=== PATIENT | female | born 1955 | race Caucasian/White ===

== ENCOUNTER 2018-08-22 09:52 | Day surgery (SDC) | payer OTHER ==
[~2018-08-22 09:52] MED LIST: CEFAZOLIN 2 Gram 2 GM/50 ML BAG IVPB ONE; CELECOXIB 100 MG CAPSULE PO ONE; FAMOTIDINE 20MG TABLET PO ONE; MECLIZINE 25 MG TABLET PO ONE; METOCLOPRAMIDE 10 MG TABLET PO ONE
[2018-08-22] MEDS ORDERED: MIDAZOLAM HCL 2MG/2ML VIAL IV ONE (09:53)
[2018-08-22] MEDS ORDERED: ROPIVACAINE HCL (NAROPIN) /PF 5MG/ML 20ML VIAL IV ONE (09:53)
[2018-08-22] MEDS ORDERED: TRANEXAMIC ACID 1,000 MG/10 ML ML IV ONE (09:53)
[2018-08-22] MEDS ORDERED: DEXAMETHASONE 4 MG/ML 1ML VIAL IVP ONE (09:53)
[2018-08-22] MEDS ORDERED: LIDOCAINE 2% MDV (20MG/ML) 20ML VIAL IV ONE (09:53)
[2018-08-22] MEDS ORDERED: PROPOFOL 10 MG/ML VIAL IV ONE (09:53)
[2018-08-22] MEDS ORDERED: BREO (FLUTICASONE/VILANTEROL) 200MCG/25MCG INHALER INH PRN (14:05)
[2018-08-22] MEDS ORDERED: ALBUTEROL INH PRN (14:05)
[2018-08-22] MEDS ORDERED: PANTOPRAZOLE SODIUM 40 MG TABLET PO PRN (14:06)
[2018-08-22] MEDS ORDERED: ZOLPIDEM TARTRATE 5 MG TABLET PO PRN (14:15)
[2018-08-22] MEDS ORDERED: ONDANSETRON HCL IV 4 MG/2 ML VIAL IVP PRN (14:15)
[2018-08-22] MEDS ORDERED: TRAMADOL HCL 50 MG TABLET PO PRN (14:15)
[2018-08-22] MEDS ORDERED: AL HYDROX/MAG HYDROX 30ML UD PO PRN (14:15)
[2018-08-22] MEDS ORDERED: ACETAMINOPHEN 325 MG TAB PO PRN (14:15)
[2018-08-22] MEDS ORDERED: OXYCODONE HCL/APAP 5MG/325MG TABLET PO PRN ×2 (14:15)
[2018-08-22] MEDS ORDERED: MAGNESIUM HYDROXIDE 30 ML UDC PO PRN (14:15)
[2018-08-22] MEDS ORDERED: METOCLOPRAMIDE HCL 10 MG/2 ML VIAL IVP PRN (14:15)
[2018-08-22] MEDS ORDERED: SENNOSIDES/DOCUSATE SODIUM UD CAPSULE PO PRN (14:15)
[2018-08-22] MEDS ORDERED: NALOXONE 0.4 MG/1 ML VIAL IVP PRN (14:15)
[2018-08-22] MEDS ORDERED: DIPHENHYDRAMINE HCL 25 MG CAPSULE PO PRN (14:15)
[2018-08-22] MEDS: HYDROCODONE/APAP 5/325MG TABLET PO PRN ×3 (15:05→21:50)
[2018-08-22] MEDS ORDERED: TRANEXAMIC ACID 1,000 MG in 0.9 % SODIUM CHLORIDE 100ML 100 ML IVPB ONE (16:00)
[2018-08-22] MEDS: HYDROMORPHONE HCL 2 MG/ML VIAL IV PRN ×2 (16:29→21:51)
--- NOTE | 2018-08-22 16:58 | Rehab Evaluation ---
Patient Information - Patient Information Diagnosis: R knee OA Ordered Treatment: PT Evaluate and Treat Status: Initial Evaluation Surgery: Yes (R TKA) Date of Surgery: 08/22/18 Past Medical/Surgical Hx: PAST MEDICAL/SURGICAL HISTORY Past Surgical History breast augmentation appy right knee scope ear sx c scopes EGD PMH - Respiratory Hx Respiratory Disorders Yes Hx Asthma Yes: well controlled rarely has to use inhaler. exercise and scent induced Hx Bronchitis Yes: nothing recent PMH - Cardiovascular Hx Cardiovascular Disorders No Exercise Tolerance Good Hx of Migraines Yes: occular rarely PMH - Neuro Hx Neurological Disorders Yes Hx Dizziness Yes: artificial ear ear drum and ear canal occasional dizziness Comment: [place] 1957 some residual weakness in hips PMH - GI Hx Gastrointestinal Disorders Yes Hx Gastroesophageal Reflux Yes: just occassionally, takes prilosec prn PMH - Hx Genitourinary Disorders No Hx Age of Menopause 36 PMH - Endocrine Hx Endocrine Disorders No PMH - Musculoskeletal Hx Musculoskeletal Disorders Yes Hx Arthritis Yes PMH - Psych Hx Psychiatric Problems Yes Hx Anxiety Yes Hx Depression Yes Major Depressive Episode Yes Comment: PTSD controlled. Major depressive episode 1985 PMH - Hematology/Oncology Hx Hematology/Oncology No Disorders Premorbid Status: Detail (The patient was indpendent with all mobility prior to surgery.) Social History: Detail (The patient lives alone in an apartment with 3 to 4 steps at the enterance and 2 railings. The patient's daughter will be staying with patient upon discharge. The patient's bathroom is equipped with a walk in shower with a stool, hand held shower, standard toilet with a riser seat. No grab bars are present in the bathroom. The patient has a standard walker.) Precautions: [place], Fall, Other (WBAT on the R LE) - Time With Patient Total Time Spent With Patient (Min): 30 Treatment Procedures: Detail (Initial Evaluation, Gait training) Subjective Information - Subjective Information Per Patient (The patient had complaints of level 7 pain using 0 to 10 pain scale.) Objective Data - Mental Status Patient Orientation: Oriented x3 - Visual Perception Appears within normal limits for therapeutic activities - ROM Not within normal limits (The patient's R knee AROM was limited as to be expected following surgery. All other AROM is WNL.) - Strength/Tone Not within normal limits (The patient's R LE strength was not formally tested secondary to status post surgery , the patient required minimal PA to lift R LE in and out of bed. The patient's L LE strength was functional.) - Bed Mobility Needs Assist (The patient required minimal PA with lifting R LE with supine to sit. The patient had increased complaints of R knee pain. The patient was able to scoot up in bed independently.) - Transfers Independent (The patient was independent with sit to and from stand transfer. The patient complained of nausea when standing.) - Balance Balance Sitting: Good Balance Standing: Fair - Sensation Intact - Gait Detail (The patient ambulated with front wheeled walker with CG of 1 WBAT on the R LE a distance of 7 feet x 1. Patient felt lightheaded and nausea. The patient was returned to bed.) Therapy Assessment - Therapy Assessment Detail (The patient required minimal PA with bed mobility and was independent with transfers. The patient ambulated a short distance due to not feeling well. Feel the patient will progress well with mobility.) Problem List - Problem List Physical Therapy Problem List: Detail (Decreased R knee AROM and Decreased R LE strength as to be expected following surgery.) Goals - Goals Physical Therapy Goals: 1)The patient will ambulate household distances with appropriate assistive device WBAT on the R LE independently. 2)The patient will be independent with ambulation on stairs using proper technique with supervision for safety. 3) The patient will be independent TKA HEP. 4) The patient will be independent with bed mobility Prognosis - Prognosis Good Plan - Plan Physical Therapy Plan: PT 1-2 times a day until all inpatient PT goals have been met for gait training, bed mobility and instruction in TKA HEP.
[2018-08-22] MEDS ORDERED: RINGERS SOLUTION,LACTATED 1,000 ML IV PRN (19:40)
[2018-08-22] MEDS: TRAMADOL HCL 50 MG TABLET PO PRN (19:59)
[2018-08-22] MEDS: CEFAZOLIN 2 Gram 2 GM/50 ML BAG IVPB SCH (20:00)
[2018-08-22] MEDS: ASPIRIN 325 MG TAB ENTERIC-COATED PO SCH (21:50)
[2018-08-22] MEDS ORDERED: PATIENT OWN MED: ESCITALOPRAM 20 MG PO SCH (22:00)
[2018-08-23] MEDS: HYDROCODONE/APAP 5/325MG TABLET PO PRN (02:04)
[2018-08-23] MEDS: RINGERS SOLUTION,LACTATED 1,000 ML IV SCH ×2 (05:15→06:35)
[2018-08-23] MEDS: CEFAZOLIN 2 Gram 2 GM/50 ML BAG IVPB SCH ×2 (05:17→12:23)
[2018-08-23] MEDS: TRAMADOL HCL 50 MG TABLET PO PRN ×2 (06:21→11:11)
--- NOTE | 2018-08-23 08:30 | Operative Note ---
DATE OF SURGERY: 08/22/2018 Surgeon: Alexis Maldonado DO PREOPERATIVE DIAGNOSIS: Primary osteoarthritis of the right knee. POSTOPERATIVE DIAGNOSIS: Primary osteoarthritis of the right knee. OPERATION: Right total knee arthroplasty. DESCRIPTION OF PROCEDURE: This 63-year-old female was taken to the operating room and placed in the supine position on the operating room table after spinal anesthesia had been induced. The right lower extremity was elevated. It was prepped with Hibiclens and draped in the usual sterile fashion. It was exsanguinated and the tourniquet inflated to 300 mmHg. All scrub personnel wore personal isolation suits. An anterior longitudinal midline incision was made followed by a medial parapatellar arthrotomy incision. An intracondylar drill hole was made for the intramedullary alignment laurent, and the distal femoral cutting block was affixed at 1 5-degree valgus 9 mm cut. The appropriate cuts were made. The wafers of bone were removed. Sizing jig was affixed and a size 67.5 was seen to be the appropriate size. The cutting block was then pinned in 3 degrees of external rotation. The appropriate cuts were made. We then directed our attention to the proximal tibia, and an extramedullary alignment guide was used to cut the proximal tibia referencing a 10 mm cut off the lateral tibial plateau. After the appropriate alignment was assured, a 3-degree posterior slope cut was made and the wafer of bone was removed. Remnants of the menisci and osteophytes were removed from the posterior aspect of the joint. The tibia was sized to a size 75 and the stem punch was used. The patella was then cut and restored to anatomic height with a 34 x 7.8 mm trial. Trial components were then inserted with a 12 mm bearing was seen to be the appropriate size. The knee was taken through range of motion and found to be stable. All trial components were then removed and the wound copiously irrigated with pulse lavage lactated Ringer's solution. All bony surfaces were dried and excess cement removed after the insertion of each component. Initially a size 75 tibial baseplate was cemented followed by the insertion of a 12 mm anterior stabilized E1 bearing and a 67.5 cruciate retaining femoral component and a 34 x 7.8 mm patella was used. GROSS PATHOLOGY: This patient demonstrated severe osteoarthritis of the medial compartment with full-thickness articular cartilage loss being noted there. Advanced degenerative disease of the patellofemoral joint was also identified. MICK
[2018-08-23] MEDS ORDERED: CELECOXIB 100 MG CAPSULE PO SCH (10:00)
[2018-08-23] MEDS ORDERED: BUPROPION 150 MG PO SCH (10:00)
[2018-08-23] MEDS: ASPIRIN 325 MG TAB ENTERIC-COATED PO SCH (10:11)
--- NOTE | 2018-08-23 10:28 | Rehab Evaluation ---
Patient Information - Patient Information Diagnosis: R knee OA Ordered Treatment: OT Evaluate and Treat Status: Initial Evaluation Surgery: Yes (R TKA) Date of Surgery: 08/22/18 Past Medical/Surgical Hx: PAST MEDICAL/SURGICAL HISTORY Past Surgical History breast augmentation appy right knee scope ear sx c scopes EGD PMH - Respiratory Hx Respiratory Disorders Yes Hx Asthma Yes: well controlled rarely has to use inhaler. exercise and scent induced Hx Bronchitis Yes: nothing recent PMH - Cardiovascular Hx Cardiovascular Disorders No Exercise Tolerance Good Hx of Migraines Yes: occular rarely PMH - Neuro Hx Neurological Disorders Yes Hx Dizziness Yes: artificial ear ear drum and ear canal occasional dizziness Comment: [place] 1957 some residual weakness in hips PMH - GI Hx Gastrointestinal Disorders Yes Hx Gastroesophageal Reflux Yes: just occassionally, takes prilosec prn PMH - Hx Genitourinary Disorders No Hx Age of Menopause 36 PMH - Endocrine Hx Endocrine Disorders No PMH - Musculoskeletal Hx Musculoskeletal Disorders Yes Hx Arthritis Yes PMH - Psych Hx Psychiatric Problems Yes Hx Anxiety Yes Hx Depression Yes Major Depressive Episode Yes Comment: PTSD controlled. Major depressive episode 1985 PMH - Hematology/Oncology Hx Hematology/Oncology No Disorders Premorbid Status: Detail (The patient was independent with all mobility, meal prep, laundry and home mgmt tasks prior to surgery.) Social History: Detail (The patient lives alone in an apartment with 4 steps and 2 railings at the entrance. The patient's daughter will be staying with patient for a few days upon discharge. The patient's bathroom is equipped with a walk in shower with a seat and hand held shower and a standard toilet with a riser seat and grab bars. The patient has a standard walker.) Precautions: [place], Fall, Other (WBAT on the R LE) - Time With Patient Total Time Spent With Patient (Min): 40 Treatment Procedures: Detail (OT eval low complexity) Subjective Information - Subjective Information Per Patient Objective Data - Pain Pain Present: Yes (02/24) - Mental Status Patient Orientation: Oriented x3 - Visual Perception Appears within normal limits for therapeutic activities - ROM Within normal limits (Truong UE AROM WNL) - Strength/Tone Within normal limits (Truong UE strength WNL although pt reports shoulders become sore after a lot of use.) - Coordination Appears within normal limits for therapeutic activities - Bed Mobility Needs Assist (Pt required min assist to move right leg during supine to sit. Pt educated on use of adaptive equipment to move leg at home, she verbalized understanding.) - Transfers Independent (Ind with sit to stand from EOB.) - Balance Balance Sitting: Good Balance Standing: Good - Sensation Intact - Gait Detail (Pt ambulating in room with 2 wheeled walker Indly.) - ADL's/IADL's Detail (Pt educated and able to demonstrate learning of modified LE dressing techniques including doffing slipper socks and donning pants and slip on shoes. Reviewed shower and kitchen safety and modifications, pt verbalized understanding.) Therapy Assessment - Therapy Assessment Detail (Pt is Ind with modified LE dressing techniques.) Problem List - Problem List Physical Therapy Problem List: Detail (Decreased R knee AROM and Decreased R LE strength as to be expected following surgery.) Occupational Therapy Problem List: Detail (No current IP OT problems identified. ) Goals - Goals Physical Therapy Goals: 1)The patient will ambulate household distances with appropriate assistive device WBAT on the R LE independently. 2)The patient will be independent with ambulation on stairs using proper technique with supervision for safety. 3) The patient will be independent TKA HEP. 4) The patient will be independent with bed mobility Occupational Therapy Goals: No current IP OT goals identified. Prognosis - Prognosis Good Plan - Plan Physical Therapy Plan: PT 1-2 times a day until all inpatient PT goals have been met for gait training, bed mobility and instruction in TKA HEP. Occupational Therapy Plan: No further IP OT recommended. Thank you for this referral.
--- NOTE | 2018-08-23 11:37 | Physical Therapy Tx Note ---
Physical Therapy Tx Note - Treatment Note Tolerated: Good Total Time Spent With Patient: 20 Physical Therapy Tx Note: Detail (The patient was up in chair when PT arrived. The patient completed TKA HEP which included: heel slides, quad sets, gluteal sets, hamstring sets, SLR and ankle pumps. The patient was unable to complete a SLR and was instructed to use a strap with that exercise. The patient ambulated with front wheeled walker a distance of 40 feet x 1 indpendently WBAT on the R LE. The patient had increased complaints of R LE pain. The patient ambulated on 3 steps with supervision/CG for safety with use of one railing and folded walker. The patient completed all inpatient PT goals however she was too painful to ambulate back to room from stair case. The patient also required verbal cues to continue to breath while ambulating at times. The patient is discharged from inpatient PT and is to continue with Outpatient PT.) Physical Therapy Problem List: Detail (Decreased R knee AROM and Decreased R LE strength as to be expected following surgery.) Physical Therapy Goals: 1)The patient will ambulate household distances with appropriate assistive device WBAT on the R LE independently.(Goal Met). 2)The patient will be independent with ambulation on stairs using proper technique with supervision for safety.(Goal Met). 3) The patient will be independent TKA HEP.(Goal Met). 4) The patient will be independent with bed mobility (Goal Met) Physical Therapy Plan: The patient has met all inpatient PT goals. The patient is discharged from inpatient PT and is to continue with outpatient PT.
--- NOTE | 2018-08-24 08:50 | Discharge Summary ---
DATE OF ADMISSION: 08/22/2018 DATE OF DISCHARGE: 08/23/2018 ADMITTING DIAGNOSIS: Osteoarthritis of the right knee. DISCHARGE DIAGNOSIS: Osteoarthritis of the right knee. OPERATIVE PROCEDURE: Elective right total knee arthroplasty. DESCRIPTION: This 63-year-old female was admitted to the hospital for elective total knee arthroplasty and tolerated the operative procedure well. She progressed satisfactorily with physical therapy and did not show any signs of surgical complication. After being cleared by Physical Therapy, she was released to be discharged home. She will have outpatient physical therapy, wear her HERMILA hose during the day and remove them at night. She will take aspirin 325 mg daily for 2 weeks. She was given a prescription for Percocet 5/325, #40, 1 every 4 hours as necessary for pain. She was also given a prescription for tramadol 50 mg 1-2 q.6 h. p.r.n. pain. She was given 60. Routine wound care instructions were given. She will follow up in the clinic in 2 weeks. Should there be any problems prior to being seen, she was instructed to call my office. MICK
== END 2018-08-23 14:02 | disposition home or self-care (01) ==
LOC: SUR 09:52 → MEDSURG 13:58 → SUR 08-23 14:02
PROVIDERS: ATTEND Orthopaedic Surgery
DX: M17.11 Unilateral primary osteoarthritis, right knee (principal); J45.909 Unspecified asthma, uncomplicated; K21.9 Gastro-esophageal reflux disease without esophagitis; F43.10 Post-traumatic stress disorder, unspecified; Z86.12 Personal history of poliomyelitis
CPT/HCPCS: 76942; 94760; 97530